=== PATIENT | female | born 1950 | race Caucasian/White ===

== ENCOUNTER → 2018-12-05 | Outpatient (CLI) | payer MEDICARE | END | disposition home or self-care (01) | LOC: CFH 15:37 | PROVIDERS: ATTEND Internal Medicine Cardiovascular Disease | DX: M79.661 Pain in right lower leg (principal); R60.9 Edema, unspecified ==

== ENCOUNTER 2019-10-20 13:21 | Outpatient (CLI) | payer MEDICARE | END 2019-10-20 23:59 | disposition home or self-care (01) | LOC: CFH 13:21 | PROVIDERS: ATTEND Internal Medicine | DX: D24.1 Benign neoplasm of right breast (principal) | CPT/HCPCS: 76642; 77065; G0279 ==

== ENCOUNTER → 2020-10-23 | Outpatient (CLI) | payer MEDICARE ==
[~2020-10-23] MED LIST: OMNIPAQUE 350 MG/ML, 100ML BOTTLE ONE
== END | disposition home or self-care (01) ==
LOC: CFH 14:12
PROVIDERS: ATTEND Obstetrics & Gynecology
DX: C54.1 Malignant neoplasm of endometrium (principal); K57.30 Diverticulosis of large intestine without perforation or abscess without bleeding; N83.291 Other ovarian cyst, right side; N83.292 Other ovarian cyst, left side; R91.8 Other nonspecific abnormal finding of lung field; J43.9 Emphysema, unspecified; J84.10 Pulmonary fibrosis, unspecified; N95.0 Postmenopausal bleeding
CPT/HCPCS: 71260; 74177; 82565; Q9967

== ENCOUNTER → 2020-10-29 | Outpatient (CLI) | payer MEDICARE ==
[~2020-10-29] MED LIST changes: +AMLO-150 PO; +CARV-39 PO; +ERGO500018 PO; +HYDR-3342 PO; +LISI1TAB39 PO; -OMNIPAQUE 350 MG/ML, 100ML BOTTLE ONE; +SUMA100T4 PO
[2020-10-29 16:14] LABS: BASOPHILS % (AUTO) 1 % (0-1); EOSINOPHILS % (AUTO) 2 % (1-7); LYMPHOCYTES % (AUTO) 19 % (22-44); MEAN CORPUSCULAR HEMOGLOBIN 29.3 pg (27.0-34.8); MEAN CORPUSCULAR HGB CONC 33.2 g/dL (32.4-35.8); MEAN PLATELET VOLUME 7.9 fL (7.4-10.4); MONOCYTES % (AUTO) 8 % (2-9); NEUTROPHILS % (AUTO) 71 % (42-75); PLATELET COUNT 261 x10^3/uL (130-400); RED BLOOD COUNT 4.75 x10^6/uL (3.82-5.3); RED CELL DISTRIBUTION WIDTH 14.5 % (9.6-15.2)
[2020-10-29 16:15] LABS: MD NO
[2020-10-29 16:25] LABS: ALANINE AMINOTRANSFERASE 18 U/L (12-78); ALBUMIN 3.4 g/dL (3.4-5.0); ANION GAP 6 mmol/L (5-15); CALCIUM 8.9 mg/dL (8.5-10.1); CHLORIDE 105 mmol/L (98-107); INTERNATIONAL NORMALIZED RATIO 1.05 (0.93-1.1); PROTHROMBIN TIME 11.2 Seconds (9.6-11.5)
[2020-10-29 16:28] LABS: ALKALINE PHOSPHATASE 85 U/L (45-117); BILIRUBIN,TOTAL 0.4 mg/dL (0.2-1.0); CREATININE 1.26 mg/dL (0.55-1.02); TOTAL PROTEIN 7.7 g/dL (6.4-8.2)
== END | disposition home or self-care (01) ==
LOC: STAR 14:45
PROVIDERS: ATTEND Obstetrics & Gynecology
DX: Z01.818 Encounter for other preprocedural examination (principal); C54.1 Malignant neoplasm of endometrium; N95.0 Postmenopausal bleeding; Z20.822 Contact with and (suspected) exposure to COVID-19
CPT/HCPCS: 36415; 71046; 80053; 85025; 85610; 85730; 86304; 93005; U0003

== ENCOUNTER 2020-11-04 05:40 | Day surgery (SDC) | payer MEDICARE ==
[~2020-11-04] VITALS: Ht 162.6 cm; Wt 130.8 kg
[2020-11-04] MEDS ORDERED: LACTATED RINGERS 1,000 ML IV SCH (06:30)
[2020-11-04] MEDS ORDERED: CHLORHEXIDINE 15 ML UDC MM ONE (06:30)
[2020-11-04] MEDS ORDERED: CEFOTETAN PMX 2GM/50ML 50 ML IVPB ONE (06:30)
[2020-11-04 06:38] VITALS: BP 144/83
[2020-11-04] MEDS ORDERED: EPINEPHRINE 1 MG/ML, 1ML ONE (06:47)
[2020-11-04] MEDS ORDERED: BUPIVACAINE/PF 0.25% ONE (06:47)
[2020-11-04] MEDS ORDERED: INDOCYANINE GREEN 25 MG VIAL ONE (07:09)
[2020-11-04] MEDS ORDERED: HEPARIN 1,000 UNITS/ML, 10ML ONE (07:09)
[2020-11-04] MEDS ORDERED: PROPOFOL 50 ML ONE (07:10)
[2020-11-04] MEDS ORDERED: MIDAZOLAM 1 MG/ML, 2ML ONE (07:10)
[2020-11-04] MEDS ORDERED: FENTANYL PF 250 MCG/5ML ONE (07:11)
[2020-11-04] MEDS ORDERED: OXYcodone 5 MG/5 ML ORAL.SOL UDC PO PRN (08:30)
[2020-11-04] MEDS ORDERED: EPHEDRINE 50 MG/ML, 1ML IM PRN (08:30)
[2020-11-04] MEDS ORDERED: MEPERIDINE/PF 25MG/0.5ML IVPush PRN (08:30)
[2020-11-04] MEDS ORDERED: HYDROmorphone 1 MG/ML, 1ML INJ IVPush PRN (08:30)
[2020-11-04] MEDS ORDERED: PROMETHAZINE 25 MG/ML, 1ML IVPush PRN (08:30)
[2020-11-04] MEDS ORDERED: ONDANSETRON 2MG/ML, 2ML IVPush PRN (08:30)
[2020-11-04] MEDS ORDERED: DIPHENHYDRAMINE 50 MG/ML, 1ML IVPush PRN (08:30)
[2020-11-04] MEDS ORDERED: DIAZEPAM 5 MG/ML, 2ML IVPush PRN (08:30)
[2020-11-04] MEDS ORDERED: EPHEDRINE 50 MG/ML, 1ML IVPush PRN (08:30)
[2020-11-04] MEDS ORDERED: ACETAMINOPHEN 325 MG TABLET PO PRN (08:30)
[2020-11-04] MEDS ORDERED: LABETALOL 5MG/ML, 20ML IV PRN (08:30)
[2020-11-04] MEDS ORDERED: FENTANYL PF 100 MCG/2ML IV PRN (08:30)
[2020-11-04] MEDS ORDERED: SUGAMMADEX 200 MG/2 ML IVPush ONE (09:46)
[2020-11-04] MEDS ORDERED: ROCURONIUM 10MG/ML,5ML ONE (09:46)
[2020-11-04] MEDS ORDERED: ONDANSETRON 2MG/ML, 2ML ONE ×2 (09:47)
[2020-11-04] MEDS ORDERED: SUCCINYLCHOLINE 20 MG/ML, 10ML ONE (09:47)
[2020-11-04] MEDS ORDERED: DEXAMETHASONE 4 MG/ML, 1ML ONE ×2 (09:47)
[2020-11-04] MEDS ORDERED: ACETAMINOPHEN 650 MG/20.3 ML UDC ONE (11:12)
[2020-11-04] MEDS ORDERED: FENTANYL PF 100 MCG/2ML ONE (11:13)
[2020-11-04] MEDS ORDERED: OXYcodone 5 MG/5 ML ORAL.SOL UDC ONE (11:13)
[2020-11-04] MEDS ORDERED: MEPERIDINE/PF 25MG/ML,1ML ONE (11:36)
== END 2020-11-04 16:20 | disposition home or self-care (01) ==
LOC: OUT 05:40
PROVIDERS: ATTEND Obstetrics & Gynecology
DX: C54.1 Malignant neoplasm of endometrium (principal); N99.71 Accidental puncture and laceration of a genitourinary system organ or structure during a genitourinary system procedure; N80.0 Endometriosis of uterus; D25.1 Intramural leiomyoma of uterus; N70.01 Acute salpingitis; N70.11 Chronic salpingitis; D27.1 Benign neoplasm of left ovary; D27.0 Benign neoplasm of right ovary; N73.6 Female pelvic peritoneal adhesions (postinfective); I10 Essential (primary) hypertension; G43.909 Migraine, unspecified, not intractable, without status migrainosus; G44.89 Other headache syndrome; E78.5 Hyperlipidemia, unspecified; F41.9 Anxiety disorder, unspecified; M19.90 Unspecified osteoarthritis, unspecified site; E66.01 Morbid (severe) obesity due to excess calories; Z68.43 Body mass index [BMI] 50.0-59.9, adult; Z79.899 Other long term (current) drug therapy; Z88.0 Allergy status to penicillin; Z88.2 Allergy status to sulfonamides; Z98.890 Other specified postprocedural states; Y83.8 Other surgical procedures as the cause of abnormal reaction of the patient, or of later complication, without mention of misadventure at the time of the procedure
CPT/HCPCS: 36415; 38570; 58552; 86850; 86900; 86923; 88112; 88305; 88307; 88309; 88329; 88333; J0171; J0330; J1100; J1644; J2175; J2250; J2405; J2704; J3010; J7120